=== PATIENT | female | born 1990 | race African-American/Black ===

== ENCOUNTER 2017-05-18 21:40 | Emergency (ER) | payer BC, OTHER ==
[~2017-05-18] VITALS: Ht 170.2 cm; Wt 109.8 kg
[2017-05-18 21:45] VITALS: BP 139/88
== END 2017-05-18 23:42 | disposition left against medical advice (07) ==
LOC: EDBD 21:40 → ER 21:40
DX: R07.89 Other chest pain (principal); R06.02 Shortness of breath; J45.909 Unspecified asthma, uncomplicated; F41.9 Anxiety disorder, unspecified; Z53.21 Procedure and treatment not carried out due to patient leaving prior to being seen by health care provider